=== PATIENT | female | born 1960 | race Caucasian/White ===

== ENCOUNTER 2016-09-19 13:14 | Outpatient (CLI) | payer MEDICARE ==
[2016-09-19 14:01] LABS: Bilirubin Negative (Negative); Blood, Urine Negative (Negative); Glucose, Urine (Dipstick) Negative (Negative); Ketone, Urine Negative (Negative); Nitrite Negative (Negative); Protein, Urine (Dipstick) Negative (Neg-Trace); Urobilinogen 0.2 mg/dL (0.2-1.0)
[2016-09-19 14:11] LABS: Bacteria/HPF Rare-Few HPF (None Seen); RBC/HPF None Seen HPF (0-3); Squamous Epithelial 0-3 HPF (0-3); WBC/HPF 0-3 HPF (0-3)
[2016-09-19 14:19] LABS: ALT (SGPT) 51 U/L (0-55); AST (SGOT) 34 U/L (5-34); Alkaline Phosphatase 85 U/L (40-150); Anion Gap 18 mmol/L (10-20); BUN (Urea Nitrogen) 30 mg/dL (9.8-20.1); Bilirubin, Total 0.3 mg/dL (0.2-1.2); Calc. Creatinine Clearance 0 mL/min (70-130); Carbon Dioxide 21 mmol/L (22-29); Chloride 101 mmol/L (98-107); Estimated GFR-MDRD 81; Globulin 3.7 g/dL (2.4-3.5); Magnesium 1.7 mg/dL (1.6-2.6); Phosphorus 3.7 mg/dL (2.3-4.7); Protein, Total 6.9 g/dL (6.0-8.3)
[2016-09-19 15:24] LABS: Hemoglobin A1c 5.1 % (4.0-6.0)
[2016-09-19 16:23] LABS: #Lymphocytes 1.3 thou/uL (1.20-3.40); #Monocytes 0.5 thou/uL (0.11-0.59); #Neutrophils 4.7 thou/uL (1.40-6.50); %Basophils 0.4 % (0.0-1.0); %Eosinophils 0.1 % (0.0-10.0); %Lymphocytes 19.5 % (21.0-51.0); %Monocytes 7.7 % (0.0-10.0); Acanthocytes SLIGHT = 1-5 cells (100X) (None Seen); Anisocytosis MODERATE=16-30 cells (100X) (0-5/hpf); Hematocrit 25.8 % (36.0-47.0); Hypochromia MARKED = >30 cells (100X) (0-5/hpf); Mean Platelet Volume 9.4 fL (7.4-10.4); Microcytosis MODERATE=15-30 cells (100X) (0-5/hpf); Red Blood Cell (RBC) Count 3.62 mill/uL (4.20-5.40); White Blood Cell (WBC) Count 6.5 thou/uL (4.8-10.8)
== END 2016-09-19 13:15 | disposition home or self-care (01) ==
LOC: NAV LABSP 13:14
PROVIDERS: ATTEND Family Medicine
DX: I10 Essential (primary) hypertension (principal); M34.9 Systemic sclerosis, unspecified; K22.70 Barrett's esophagus without dysplasia; N39.0 Urinary tract infection, site not specified; E44.0 Moderate protein-calorie malnutrition; J44.1 Chronic obstructive pulmonary disease with (acute) exacerbation; E11.9 Type 2 diabetes mellitus without complications
CPT/HCPCS: 80053; 81001; 83036; 83735; 84100; 84134; 84478; 85025

== ENCOUNTER 2016-09-26 14:33 | Outpatient (CLI) | payer MEDICARE ==
[2016-09-26 15:47] LABS: ALT (SGPT) 33 U/L (0-55); AST (SGOT) 35 U/L (5-34); Alkaline Phosphatase 82 U/L (40-150); Anion Gap 15 mmol/L (10-20); BUN (Urea Nitrogen) 22 mg/dL (9.8-20.1); Bilirubin, Total 0.2 mg/dL (0.2-1.2); Calc. Creatinine Clearance 0 mL/min (70-130); Calcium 8.3 mg/dL (7.8-10.44); Carbon Dioxide 23 mmol/L (22-29); Chloride 103 mmol/L (98-107); Estimated GFR-MDRD 78; Globulin 3.6 g/dL (2.4-3.5); Magnesium 1.7 mg/dL (1.6-2.6); Protein, Total 6.4 g/dL (6.0-8.3)
[2016-09-26 17:25] LABS: #Basophils 0.1 thou/uL (0.0-0.2); #Monocytes 0.8 thou/uL (0.11-0.59); %Basophils 2.4 % (0.0-1.0); %Eosinophils 0.1 % (0.0-10.0); %Lymphocytes 20.6 % (21.0-51.0); %Monocytes 16.9 % (0.0-10.0); Hematocrit 23.1 % (36.0-47.0); Mean Platelet Volume 7.9 fL (7.4-10.4); Red Blood Cell (RBC) Count 3.25 mill/uL (4.20-5.40); White Blood Cell (WBC) Count 4.9 thou/uL (4.8-10.8)
== END 2016-09-26 14:34 | disposition home or self-care (01) ==
LOC: NAV LABSP 14:33
PROVIDERS: ATTEND Family Medicine
DX: E44.0 Moderate protein-calorie malnutrition (principal); M34.9 Systemic sclerosis, unspecified; K22.70 Barrett's esophagus without dysplasia; J44.1 Chronic obstructive pulmonary disease with (acute) exacerbation; I10 Essential (primary) hypertension
CPT/HCPCS: 80053; 83735; 84100; 84134; 84478; 85025

== ENCOUNTER 2016-10-02 15:02 | Outpatient (CLI) | payer MEDICARE ==
[2016-10-02 17:52] LABS: ALT (SGPT) 58 U/L (0-55); AST (SGOT) 71 U/L (5-34); Alkaline Phosphatase 101 U/L (40-150); Anion Gap 19 mmol/L (10-20); BUN (Urea Nitrogen) 32 mg/dL (9.8-20.1); Bilirubin, Total 0.2 mg/dL (0.2-1.2); Calc. Creatinine Clearance 0 mL/min (70-130); Calcium 9.1 mg/dL (7.8-10.44); Carbon Dioxide 20 mmol/L (22-29); Chloride 103 mmol/L (98-107); Estimated GFR-MDRD 69; Globulin 4.2 g/dL (2.4-3.5); Magnesium 1.8 mg/dL (1.6-2.6); Phosphorus 3.7 mg/dL (2.3-4.7); Protein, Total 7.5 g/dL (6.0-8.3)
[2016-10-02 18:25] LABS: #Basophils 0.1 thou/uL (0.0-0.2); #Lymphocytes 1.7 thou/uL (1.20-3.40); #Monocytes 0.8 thou/uL (0.11-0.59); #Neutrophils 6.7 thou/uL (1.40-6.50); %Basophils 0.5 % (0.0-1.0); %Lymphocytes 18.1 % (21.0-51.0); %Monocytes 8.5 % (0.0-10.0); Anisocytosis SLIGHT = 6-15 cells (100X) (0-5/hpf); Hematocrit 36.1 % (36.0-47.0); Hypochromia SLIGHT = 6-15 cells (100X) (0-5/hpf); Mean Platelet Volume 7.4 fL (7.4-10.4); Microcytosis SLIGHT = 6-15 cells (100X) (0-5/hpf); Ovalocytes SLIGHT = 2-5 cells (100X) (0-1/hpf); Poikilocytosis SLIGHT = 6-15 cells (100X) (0-5/hpf); Polychromasia SLIGHT = 2-3 cells (100X) (0-2/hpf); Red Blood Cell (RBC) Count 4.75 mill/uL (4.20-5.40); White Blood Cell (WBC) Count 9.2 thou/uL (4.8-10.8)
== END 2016-10-02 15:03 | disposition home or self-care (01) ==
LOC: NAV LABSP 15:02
PROVIDERS: ATTEND Family Medicine
DX: J44.1 Chronic obstructive pulmonary disease with (acute) exacerbation (principal); K22.70 Barrett's esophagus without dysplasia; M34.9 Systemic sclerosis, unspecified; I10 Essential (primary) hypertension; E44.0 Moderate protein-calorie malnutrition
CPT/HCPCS: 80053; 83735; 84100; 84134; 84478; 85025

== ENCOUNTER 2016-10-16 13:50 | Outpatient (CLI) | payer MEDICARE ==
[2016-10-16 14:24] LABS: ALT (SGPT) 39 U/L (0-55); AST (SGOT) 53 U/L (5-34); Alkaline Phosphatase 100 U/L (40-150); Anion Gap 16 mmol/L (10-20); BUN (Urea Nitrogen) 32 mg/dL (9.8-20.1); Bilirubin, Total 0.7 mg/dL (0.2-1.2); Calc. Creatinine Clearance 0 mL/min (70-130); Calcium 8.8 mg/dL (7.8-10.44); Carbon Dioxide 22 mmol/L (22-29); Chloride 102 mmol/L (98-107); Estimated GFR-MDRD 81; Globulin 4.1 g/dL (2.4-3.5); Magnesium 1.8 mg/dL (1.6-2.6); Protein, Total 7.2 g/dL (6.0-8.3)
[2016-10-16 14:34] LABS: #Lymphocytes 1.6 thou/uL (1.20-3.40); #Monocytes 0.7 thou/uL (0.11-0.59); #Neutrophils 6.6 thou/uL (1.40-6.50); %Basophils 0.5 % (0.0-1.0); %Eosinophils 0.1 % (0.0-10.0); %Lymphocytes 17.7 % (21.0-51.0); Hematocrit 30.3 % (36.0-47.0); Hypochromia SLIGHT = 6-15 cells (100X) (0-5/hpf); Mean Platelet Volume 8.9 fL (7.4-10.4); Microcytosis SLIGHT = 6-15 cells (100X) (0-5/hpf); Ovalocytes SLIGHT = 2-5 cells (100X) (0-1/hpf); Poikilocytosis SLIGHT = 6-15 cells (100X) (0-5/hpf); Polychromasia SLIGHT = 2-3 cells (100X) (0-2/hpf); Red Blood Cell (RBC) Count 3.97 mill/uL (4.20-5.40); Tear Drops SLIGHT = 2-5 cells (100X) (0-1/hpf); White Blood Cell (WBC) Count 8.9 thou/uL (4.8-10.8)
[2016-10-16 14:50] LABS: Phosphorus 1.7 mg/dL (2.3-4.7)
== END 2016-10-16 13:51 | disposition home or self-care (01) ==
LOC: NAV LABSP 13:50
PROVIDERS: ATTEND Family Medicine
DX: E44.0 Moderate protein-calorie malnutrition (principal); J44.0 Chronic obstructive pulmonary disease with (acute) lower respiratory infection; J44.1 Chronic obstructive pulmonary disease with (acute) exacerbation; I10 Essential (primary) hypertension; M34.9 Systemic sclerosis, unspecified
CPT/HCPCS: 80053; 83735; 84100; 84134; 84478; 85025

== ENCOUNTER 2016-10-23 13:05 | Outpatient (CLI) | payer MEDICARE ==
[2016-10-23 18:19] LABS: #Lymphocytes 1.3 thou/uL (1.20-3.40); #Monocytes 0.7 thou/uL (0.11-0.59); #Neutrophils 6.5 thou/uL (1.40-6.50); %Basophils 0.3 % (0.0-1.0); %Lymphocytes 15.2 % (21.0-51.0); %Monocytes 8.1 % (0.0-10.0); ALT (SGPT) 30 U/L (0-55); AST (SGOT) 41 U/L (5-34); Alkaline Phosphatase 95 U/L (40-150); Anion Gap 19 mmol/L (10-20); BUN (Urea Nitrogen) 33 mg/dL (9.8-20.1); Bilirubin, Total 0.4 mg/dL (0.2-1.2); Calc. Creatinine Clearance 0 mL/min (70-130); Calcium 8.9 mg/dL (7.8-10.44); Carbon Dioxide 20 mmol/L (22-29); Chloride 100 mmol/L (98-107); Estimated GFR-MDRD 77; Globulin 4.1 g/dL (2.4-3.5); Hematocrit 29.6 % (36.0-47.0); Magnesium 2.1 mg/dL (1.6-2.6); Mean Platelet Volume 7.4 fL (7.4-10.4); Protein, Total 7.2 g/dL (6.0-8.3); Red Blood Cell (RBC) Count 3.63 mill/uL (4.20-5.40); White Blood Cell (WBC) Count 8.5 thou/uL (4.8-10.8)
== END 2016-10-23 13:06 | disposition home or self-care (01) ==
LOC: NAV LABSP 13:05
PROVIDERS: ATTEND Family Medicine
DX: J44.1 Chronic obstructive pulmonary disease with (acute) exacerbation (principal); I10 Essential (primary) hypertension; E44.0 Moderate protein-calorie malnutrition; M34.9 Systemic sclerosis, unspecified; K22.70 Barrett's esophagus without dysplasia
CPT/HCPCS: 80053; 83735; 84100; 84134; 84478; 85025

== ENCOUNTER 2016-10-30 12:33 | Outpatient (CLI) | payer MEDICARE ==
[2016-10-30 16:57] LABS: ALT (SGPT) 30 U/L (0-55); AST (SGOT) 36 U/L (5-34); Alkaline Phosphatase 93 U/L (40-150); Anion Gap 16 mmol/L (10-20); BUN (Urea Nitrogen) 28 mg/dL (9.8-20.1); Bilirubin, Total 0.3 mg/dL (0.2-1.2); Calc. Creatinine Clearance 0 mL/min (70-130); Carbon Dioxide 24 mmol/L (22-29); Chloride 99 mmol/L (98-107); Estimated GFR-MDRD 84; Globulin 3.9 g/dL (2.4-3.5); Magnesium 2.1 mg/dL (1.6-2.6); Phosphorus 4.2 mg/dL (2.3-4.7); Protein, Total 6.8 g/dL (6.0-8.3)
[2016-10-30 17:13] LABS: #Lymphocytes 1.1 thou/uL (1.20-3.40); #Monocytes 0.6 thou/uL (0.11-0.59); %Basophils 0.4 % (0.0-1.0); %Lymphocytes 19.6 % (21.0-51.0); %Monocytes 10.5 % (0.0-10.0); Anisocytosis SLIGHT = 6-15 cells (100X) (0-5/hpf); Hematocrit 27.6 % (36.0-47.0); Hypochromia SLIGHT = 6-15 cells (100X) (0-5/hpf); Microcytosis SLIGHT = 6-15 cells (100X) (0-5/hpf); Red Blood Cell (RBC) Count 3.31 mill/uL (4.20-5.40); White Blood Cell (WBC) Count 5.7 thou/uL (4.8-10.8)
== END 2016-10-30 12:34 | disposition home or self-care (01) ==
LOC: NAV LABSP 12:33
PROVIDERS: ATTEND Family Medicine
DX: E44.0 Moderate protein-calorie malnutrition (principal); J44.1 Chronic obstructive pulmonary disease with (acute) exacerbation; K22.70 Barrett's esophagus without dysplasia; I10 Essential (primary) hypertension; M34.9 Systemic sclerosis, unspecified
CPT/HCPCS: 80053; 83735; 84100; 84134; 84478; 85025

== ENCOUNTER 2016-11-06 15:29 | Outpatient (CLI) | payer MEDICARE ==
[2016-11-06 16:54] LABS: ALT (SGPT) 31 U/L (0-55); AST (SGOT) 36 U/L (5-34); Alkaline Phosphatase 98 U/L (40-150); Anion Gap 19 mmol/L (10-20); BUN (Urea Nitrogen) 28 mg/dL (9.8-20.1); Bilirubin, Total 0.3 mg/dL (0.2-1.2); Calc. Creatinine Clearance 0 mL/min (70-130); Calcium 9.1 mg/dL (7.8-10.44); Carbon Dioxide 21 mmol/L (22-29); Chloride 99 mmol/L (98-107); Estimated GFR-MDRD 74; Globulin 4.6 g/dL (2.4-3.5); Phosphorus 4.5 mg/dL (2.3-4.7); Protein, Total 7.8 g/dL (6.0-8.3)
[2016-11-06 17:15] LABS: #Lymphocytes 1.3 thou/uL (1.20-3.40); #Monocytes 0.4 thou/uL (0.11-0.59); #Neutrophils 4.3 thou/uL (1.40-6.50); %Basophils 0.4 % (0.0-1.0); %Lymphocytes 21.5 % (21.0-51.0); Anisocytosis MODERATE=16-30 cells (100X) (0-5/hpf); Hematocrit 30.9 % (36.0-47.0); Hypochromia SLIGHT = 6-15 cells (100X) (0-5/hpf); Red Blood Cell (RBC) Count 3.67 mill/uL (4.20-5.40); Schistocytes SLIGHT = 2-5 cells (100X) (0-1/hpf)
== END 2016-11-06 15:30 | disposition home or self-care (01) ==
LOC: NAV LABSP 15:29
PROVIDERS: ATTEND Family Medicine
DX: E44.0 Moderate protein-calorie malnutrition (principal); J44.1 Chronic obstructive pulmonary disease with (acute) exacerbation; I10 Essential (primary) hypertension; M34.9 Systemic sclerosis, unspecified; K22.70 Barrett's esophagus without dysplasia
CPT/HCPCS: 80053; 83735; 84100; 84134; 84478; 85025

== ENCOUNTER 2016-11-13 15:06 | Outpatient (CLI) | payer MEDICARE ==
[2016-11-13 16:54] LABS: #Monocytes 0.5 thou/uL (0.11-0.59); #Neutrophils 6.6 thou/uL (1.40-6.50); %Basophils 0.4 % (0.0-1.0); %Lymphocytes 12.3 % (21.0-51.0); %Monocytes 6.5 % (0.0-10.0); Hematocrit 26.1 % (36.0-47.0); Hypochromia SLIGHT = 6-15 cells (100X) (0-5/hpf); Mean Platelet Volume 8.4 fL (7.4-10.4); Microcytosis SLIGHT = 6-15 cells (100X) (0-5/hpf); Red Blood Cell (RBC) Count 3.21 mill/uL (4.20-5.40); Schistocytes SLIGHT = 2-5 cells (100X) (0-1/hpf); White Blood Cell (WBC) Count 8.2 thou/uL (4.8-10.8)
[2016-11-13 17:26] LABS: Anion Gap 18 mmol/L (10-20); Bilirubin, Total 0.2 mg/dL (0.2-1.2); Calc. Creatinine Clearance 0 mL/min (70-130); Calcium 8.4 mg/dL (7.8-10.44); Carbon Dioxide 21 mmol/L (22-29); Chloride 101 mmol/L (98-107); Estimated GFR-MDRD 78; Phosphorus 4.3 mg/dL (2.3-4.7)
[2016-11-13 17:44] LABS: BUN (Urea Nitrogen) 29 mg/dL (9.8-20.1)
[2016-11-13 17:46] LABS: Alkaline Phosphatase 85 U/L (40-150)
[2016-11-13 17:47] LABS: ALT (SGPT) 34 U/L (0-55); AST (SGOT) 33 U/L (5-34)
== END 2016-11-13 15:07 | disposition home or self-care (01) ==
LOC: NAV LAB 15:06
PROVIDERS: ATTEND Family Medicine
DX: J44.1 Chronic obstructive pulmonary disease with (acute) exacerbation (principal); K22.70 Barrett's esophagus without dysplasia; E44.0 Moderate protein-calorie malnutrition; I10 Essential (primary) hypertension; M34.9 Systemic sclerosis, unspecified
CPT/HCPCS: 80053; 83735; 84100; 84134; 84478; 85025

== ENCOUNTER 2016-11-20 15:34 | Outpatient (CLI) | payer MEDICARE ==
[2016-11-20 16:55] LABS: #Lymphocytes 1.9 thou/uL (1.20-3.40); #Monocytes 0.4 thou/uL (0.11-0.59); #Neutrophils 4.2 thou/uL (1.40-6.50); %Basophils 0.5 % (0.0-1.0); %Monocytes 6.2 % (0.0-10.0); Hematocrit 28.1 % (36.0-47.0); Mean Platelet Volume 7.9 fL (7.4-10.4); Red Blood Cell (RBC) Count 3.44 mill/uL (4.20-5.40); White Blood Cell (WBC) Count 6.5 thou/uL (4.8-10.8)
[2016-11-20 17:19] LABS: ALT (SGPT) 39 U/L (0-55); AST (SGOT) 43 U/L (5-34); Alkaline Phosphatase 90 U/L (40-150); Anion Gap 16 mmol/L (10-20); BUN (Urea Nitrogen) 29 mg/dL (9.8-20.1); Bilirubin, Total 0.2 mg/dL (0.2-1.2); Calc. Creatinine Clearance 0 mL/min (70-130); Calcium 8.7 mg/dL (7.8-10.44); Carbon Dioxide 21 mmol/L (22-29); Chloride 90 mmol/L (98-107); Estimated GFR-MDRD 81; Globulin 4.4 g/dL (2.4-3.5); Magnesium 1.8 mg/dL (1.6-2.6); Phosphorus 4.8 mg/dL (2.3-4.7); Protein, Total 7.5 g/dL (6.0-8.3)
== END 2016-11-20 15:35 | disposition home or self-care (01) ==
LOC: NAV LABSP 15:34
PROVIDERS: ATTEND Family Medicine
DX: M34.9 Systemic sclerosis, unspecified (principal); K22.70 Barrett's esophagus without dysplasia; E44.0 Moderate protein-calorie malnutrition; J44.1 Chronic obstructive pulmonary disease with (acute) exacerbation; I10 Essential (primary) hypertension
CPT/HCPCS: 80053; 83735; 84100; 84134; 84478; 85025

== ENCOUNTER 2016-11-27 14:09 | Outpatient (CLI) | payer MEDICARE ==
[2016-11-27 14:47] LABS: ALT (SGPT) 45 U/L (0-55); AST (SGOT) 46 U/L (5-34); Alkaline Phosphatase 87 U/L (40-150); Anion Gap 19 mmol/L (10-20); BUN (Urea Nitrogen) 32 mg/dL (9.8-20.1); Bilirubin, Total 0.2 mg/dL (0.2-1.2); Calc. Creatinine Clearance 0 mL/min (70-130); Calcium 8.8 mg/dL (7.8-10.44); Carbon Dioxide 23 mmol/L (22-29); Chloride 97 mmol/L (98-107); Estimated GFR-MDRD 79; Globulin 4.5 g/dL (2.4-3.5); Magnesium 1.7 mg/dL (1.6-2.6); Phosphorus 4.6 mg/dL (2.3-4.7); Protein, Total 7.5 g/dL (6.0-8.3)
[2016-11-27 14:59] LABS: #Lymphocytes 1.3 thou/uL (1.20-3.40); #Monocytes 0.5 thou/uL (0.11-0.59); #Neutrophils 4.8 thou/uL (1.40-6.50); %Basophils 0.4 % (0.0-1.0); %Lymphocytes 20.3 % (21.0-51.0); %Monocytes 6.9 % (0.0-10.0); Hematocrit 25.4 % (36.0-47.0); Hypochromia SLIGHT = 6-15 cells (100X) (0-5/hpf); Mean Platelet Volume 8.2 fL (7.4-10.4); Microcytosis SLIGHT = 6-15 cells (100X) (0-5/hpf); Red Blood Cell (RBC) Count 3.21 mill/uL (4.20-5.40); White Blood Cell (WBC) Count 6.6 thou/uL (4.8-10.8)
== END 2016-11-27 14:10 | disposition home or self-care (01) ==
LOC: NAV LABSP 14:09
PROVIDERS: ATTEND Family Medicine
DX: E44.0 Moderate protein-calorie malnutrition (principal); M34.9 Systemic sclerosis, unspecified; K22.70 Barrett's esophagus without dysplasia; J44.1 Chronic obstructive pulmonary disease with (acute) exacerbation; I10 Essential (primary) hypertension
CPT/HCPCS: 80053; 83735; 84100; 84134; 84478; 85025

== ENCOUNTER 2016-12-04 16:06 | Outpatient (CLI) | payer MEDICARE ==
[2016-12-04 19:43] LABS: ALT (SGPT) 41 U/L (0-55); Alkaline Phosphatase 80 U/L (40-150); BUN (Urea Nitrogen) 34 mg/dL (9.8-20.1); Calc. Creatinine Clearance 0 mL/min (70-130); Carbon Dioxide 21 mmol/L (22-29); Estimated GFR-MDRD 83; Globulin 4.3 g/dL (2.4-3.5); Glucose 110 mg/dL (70-105); Protein, Total 7.3 g/dL (6.0-8.3)
[2016-12-04 19:47] LABS: #Monocytes 0.4 thou/uL (0.11-0.59); %Basophils 0.5 % (0.0-1.0); %Eosinophils 0.1 % (0.0-10.0); %Lymphocytes 23.2 % (21.0-51.0); %Monocytes 8.1 % (0.0-10.0); %Neutrophils 68.1 % (42.0-75.0); Hemoglobin 7.7 g/dL (12.0-16.0); Mean Corpuscular HGB CONC 30.6 g/dL (32.0-36.0); Mean Corpuscular Hemoglobin 24.3 pg (27.0-31.0); Mean Corpuscular Volume 79.3 fl (81.0-99.0); Mean Platelet Volume 7.9 fL (7.4-10.4); Platelet Count 144 thou/uL (130-400); RBC Distribution Width 18.6 % (11.5-14.5); Red Blood Cell (RBC) Count 3.17 mill/uL (4.20-5.40); White Blood Cell (WBC) Count 4.4 thou/uL (4.8-10.8)
[2016-12-04 19:55] LABS: AST (SGOT) 38 U/L (5-34); Bilirubin, Total 0.2 mg/dL (0.2-1.2); Calcium 8.7 mg/dL (7.8-10.44); Magnesium 1.8 mg/dL (1.6-2.6); Phosphorus 4.1 mg/dL (2.3-4.7); Triglycerides 245 mg/dL (Less than 150)
[2016-12-04 20:03] LABS: Chloride 101 mmol/L (98-107); Sodium 138 mmol/L (136-145)
[2016-12-04 20:04] LABS: Anion Gap 20 mmol/L (10-20)
== END 2016-12-04 16:07 | disposition home or self-care (01) ==
LOC: NAV LABSP 16:06
PROVIDERS: ATTEND Family Medicine
DX: E44.0 Moderate protein-calorie malnutrition (principal); M34.9 Systemic sclerosis, unspecified; K27.0 Acute peptic ulcer, site unspecified, with hemorrhage; I10 Essential (primary) hypertension; J44.1 Chronic obstructive pulmonary disease with (acute) exacerbation
CPT/HCPCS: 80053; 83735; 84100; 84134; 84478; 85025

== ENCOUNTER 2016-12-11 16:05 | Outpatient (CLI) | payer MEDICARE ==
[2016-12-11 17:01] LABS: ALT (SGPT) 59 U/L (0-55); AST (SGOT) 38 U/L (5-34); Albumin 2.9 g/dL (3.5-5.0); Alkaline Phosphatase 104 U/L (40-150); Anion Gap 16 mmol/L (10-20); BUN (Urea Nitrogen) 27 mg/dL (9.8-20.1); Bilirubin, Total 0.3 mg/dL (0.2-1.2); Calc. Creatinine Clearance 0 mL/min (70-130); Calcium 8.3 mg/dL (7.8-10.44); Carbon Dioxide 22 mmol/L (22-29); Chloride 100 mmol/L (98-107); Estimated GFR-MDRD 78; Globulin 4.4 g/dL (2.4-3.5); Glucose 106 mg/dL (70-105); Magnesium 1.8 mg/dL (1.6-2.6); Phosphorus 4.4 mg/dL (2.3-4.7); Potassium 4.3 mmol/L (3.5-5.1); Protein, Total 7.3 g/dL (6.0-8.3); Sodium 134 mmol/L (136-145); Triglycerides 261 mg/dL (Less than 150)
[2016-12-11 17:23] LABS: #Lymphocytes 1.1 thou/uL (1.20-3.40); #Monocytes 0.3 thou/uL (0.11-0.59); #Neutrophils 3.2 thou/uL (1.40-6.50); %Basophils 0.8 % (0.0-1.0); %Monocytes 7.2 % (0.0-10.0); %Neutrophils 68.1 % (42.0-75.0); Hemoglobin 7.6 g/dL (12.0-16.0); Hypochromia SLIGHT = 6-15 cells (100X) (0-5/hpf); MDiff Complete? YES; Mean Corpuscular HGB CONC 31.7 g/dL (32.0-36.0); Mean Corpuscular Hemoglobin 25.1 pg (27.0-31.0); Mean Corpuscular Volume 79.1 fl (81.0-99.0); Mean Platelet Volume 10.1 fL (7.4-10.4); Microcytosis SLIGHT = 6-15 cells (100X) (0-5/hpf); PLT Morphology Comment Appears Decreased; Platelet Count 115 thou/uL (130-400); RBC Distribution Width 17.5 % (11.5-14.5); Red Blood Cell (RBC) Count 3.01 mill/uL (4.20-5.40); White Blood Cell (WBC) Count 4.7 thou/uL (4.8-10.8)
== END 2016-12-11 16:06 | disposition home or self-care (01) ==
LOC: NAV LABSP 16:05
PROVIDERS: ATTEND Family Medicine
DX: E44.0 Moderate protein-calorie malnutrition (principal); M34.9 Systemic sclerosis, unspecified; K22.70 Barrett's esophagus without dysplasia; J44.1 Chronic obstructive pulmonary disease with (acute) exacerbation; I10 Essential (primary) hypertension
CPT/HCPCS: 80053; 83735; 84100; 84134; 84478; 85025

== ENCOUNTER 2016-12-18 16:01 | Outpatient (CLI) | payer MEDICARE ==
[2016-12-18 17:50] LABS: ALT (SGPT) 50 U/L (0-55); AST (SGOT) 52 U/L (5-34); Albumin 2.8 g/dL (3.5-5.0); Alkaline Phosphatase 98 U/L (40-150); Anion Gap 19 mmol/L (10-20); BUN (Urea Nitrogen) 28 mg/dL (9.8-20.1); Bilirubin, Total 0.3 mg/dL (0.2-1.2); Calc. Creatinine Clearance 0 mL/min (70-130); Calcium 8.7 mg/dL (7.8-10.44); Carbon Dioxide 21 mmol/L (22-29); Chloride 99 mmol/L (98-107); Estimated GFR-MDRD 81; Glucose 106 mg/dL (70-105); Magnesium 1.7 mg/dL (1.6-2.6); Phosphorus 4.6 mg/dL (2.3-4.7); Potassium 4.4 mmol/L (3.5-5.1); Protein, Total 7.8 g/dL (6.0-8.3); Sodium 135 mmol/L (136-145); Triglycerides 249 mg/dL (Less than 150)
[2016-12-18 18:17] LABS: #Monocytes 0.4 thou/uL (0.11-0.59); #Neutrophils 3.2 thou/uL (1.40-6.50); %Basophils 0.6 % (0.0-1.0); %Lymphocytes 22.1 % (21.0-51.0); %Monocytes 8.2 % (0.0-10.0); %Neutrophils 69.1 % (42.0-75.0); Band 5 % (5-11); Hemoglobin 7.1 g/dL (12.0-16.0); Lymphocytes 18 % (21-51); MDiff Complete? YES; Mean Corpuscular HGB CONC 30.5 g/dL (32.0-36.0); Mean Corpuscular Hemoglobin 24.1 pg (27.0-31.0); Mean Corpuscular Volume 78.9 fl (81.0-99.0); Microcytosis MODERATE=15-30 cells (100X) (0-5/hpf); Monocytes 4 % (0-10); Neutrophil 73 % (42-75); Ovalocytes SLIGHT = 2-5 cells (100X) (0-1/hpf); PLT Morphology Comment Appears Adequate; Platelet Count 136 thou/uL (130-400); RBC Distribution Width 17.7 % (11.5-14.5); Red Blood Cell (RBC) Count 2.96 mill/uL (4.20-5.40); White Blood Cell (WBC) Count 4.7 thou/uL (4.8-10.8)
== END 2016-12-18 16:02 | disposition home or self-care (01) ==
LOC: NAV LABSP 16:01
PROVIDERS: ATTEND Family Medicine
DX: J44.1 Chronic obstructive pulmonary disease with (acute) exacerbation (principal); I10 Essential (primary) hypertension; M34.9 Systemic sclerosis, unspecified; K22.70 Barrett's esophagus without dysplasia; E44.0 Moderate protein-calorie malnutrition
CPT/HCPCS: 80053; 83735; 84100; 84134; 84478; 85025

== ENCOUNTER 2016-12-26 15:14 | Outpatient (CLI) | payer MEDICARE ==
[2016-12-26 16:48] LABS: ALT (SGPT) 64 U/L (0-55); AST (SGOT) 56 U/L (5-34); Albumin 2.9 g/dL (3.5-5.0); Alkaline Phosphatase 119 U/L (40-150); Anion Gap 17 mmol/L (10-20); BUN (Urea Nitrogen) 28 mg/dL (9.8-20.1); Bilirubin, Total 0.4 mg/dL (0.2-1.2); Calc. Creatinine Clearance 0 mL/min (70-130); Calcium 8.8 mg/dL (7.8-10.44); Carbon Dioxide 23 mmol/L (22-29); Chloride 97 mmol/L (98-107); Estimated GFR-MDRD 86; Globulin 4.4 g/dL (2.4-3.5); Glucose 104 mg/dL (70-105); Magnesium 1.6 mg/dL (1.6-2.6); Phosphorus 4.4 mg/dL (2.3-4.7); Potassium 4.2 mmol/L (3.5-5.1); Protein, Total 7.3 g/dL (6.0-8.3); Sodium 133 mmol/L (136-145); Triglycerides 190 mg/dL (Less than 150)
[2016-12-26 17:17] LABS: #Lymphocytes 1.1 thou/uL (1.20-3.40); #Monocytes 0.3 thou/uL (0.11-0.59); #Neutrophils 3.9 thou/uL (1.40-6.50); %Basophils 0.8 % (0.0-1.0); %Lymphocytes 21.2 % (21.0-51.0); %Monocytes 5.5 % (0.0-10.0); %Neutrophils 72.5 % (42.0-75.0); Anisocytosis SLIGHT = 6-15 cells (100X) (0-5/hpf); Hemoglobin 9.6 g/dL (12.0-16.0); Hypochromia SLIGHT = 6-15 cells (100X) (0-5/hpf); MDiff Complete? YES; Mean Corpuscular HGB CONC 32.6 g/dL (32.0-36.0); Mean Corpuscular Volume 79.9 fl (81.0-99.0); Mean Platelet Volume 8.1 fL (7.4-10.4); Microcytosis SLIGHT = 6-15 cells (100X) (0-5/hpf); Ovalocytes SLIGHT = 2-5 cells (100X) (0-1/hpf); PLT Morphology Comment Appears Decreased; Platelet Count 125 thou/uL (130-400); RBC Distribution Width 18.5 % (11.5-14.5); White Blood Cell (WBC) Count 5.4 thou/uL (4.8-10.8)
== END 2016-12-26 15:15 | disposition home or self-care (01) ==
LOC: NAV LABSP 15:14
PROVIDERS: ATTEND Family Medicine
DX: E44.0 Moderate protein-calorie malnutrition (principal); J44.1 Chronic obstructive pulmonary disease with (acute) exacerbation; M34.9 Systemic sclerosis, unspecified; I10 Essential (primary) hypertension; K22.70 Barrett's esophagus without dysplasia
CPT/HCPCS: 80053; 83735; 84100; 84134; 84478; 85025

== ENCOUNTER 2017-01-02 13:18 | Outpatient (CLI) | payer MEDICARE ==
[2017-01-02 14:39] LABS: #Basophils 0.1 thou/uL (0.0-0.2); #Lymphocytes 0.9 thou/uL (1.20-3.40); #Monocytes 0.5 thou/uL (0.11-0.59); #Neutrophils 3.4 thou/uL (1.40-6.50); %Basophils 1.1 % (0.0-1.0); %Eosinophils 0.1 % (0.0-10.0); %Lymphocytes 18.9 % (21.0-51.0); %Monocytes 9.2 % (0.0-10.0); %Neutrophils 70.7 % (42.0-75.0); Anisocytosis MODERATE=16-30 cells (100X) (0-5/hpf); Hemoglobin 8.6 g/dL (12.0-16.0); Hypochromia MODERATE=16-30 cells (100X) (0-5/hpf); MDiff Complete? YES; Mean Corpuscular HGB CONC 32.8 g/dL (32.0-36.0); Mean Corpuscular Hemoglobin 26.2 pg (27.0-31.0); Mean Corpuscular Volume 79.9 fl (81.0-99.0); Microcytosis SLIGHT = 6-15 cells (100X) (0-5/hpf); Platelet Count 133 thou/uL (130-400); RBC Distribution Width 19.2 % (11.5-14.5); Target Cells SLIGHT = 2-5 cells (100X) (0-1/hpf); White Blood Cell (WBC) Count 4.8 thou/uL (4.8-10.8)
[2017-01-02 14:49] LABS: ALT (SGPT) 85 U/L (0-55); AST (SGOT) 67 U/L (5-34); Albumin 2.7 g/dL (3.5-5.0); Alkaline Phosphatase 112 U/L (40-150); Anion Gap 17 mmol/L (10-20); BUN (Urea Nitrogen) 29 mg/dL (9.8-20.1); Bilirubin, Total 0.3 mg/dL (0.2-1.2); Calc. Creatinine Clearance 0 mL/min (70-130); Calcium 8.5 mg/dL (7.8-10.44); Carbon Dioxide 24 mmol/L (22-29); Chloride 98 mmol/L (98-107); Estimated GFR-MDRD 90; Globulin 4.2 g/dL (2.4-3.5); Glucose 92 mg/dL (70-105); Magnesium 2.4 mg/dL (1.6-2.6); Phosphorus 4.1 mg/dL (2.3-4.7); Potassium 4.4 mmol/L (3.5-5.1); Protein, Total 6.9 g/dL (6.0-8.3); Sodium 135 mmol/L (136-145); Triglycerides 216 mg/dL (Less than 150)
== END 2017-01-02 13:19 | disposition home or self-care (01) ==
LOC: NAV LABSP 13:18
PROVIDERS: ATTEND Family Medicine
DX: K22.70 Barrett's esophagus without dysplasia (principal); E44.0 Moderate protein-calorie malnutrition; J44.1 Chronic obstructive pulmonary disease with (acute) exacerbation; M34.9 Systemic sclerosis, unspecified; I10 Essential (primary) hypertension
CPT/HCPCS: 80053; 83735; 84100; 84134; 84478; 85025

== ENCOUNTER 2017-01-08 13:15 | Outpatient (CLI) | payer MEDICARE ==
[2017-01-08 13:53] LABS: #Lymphocytes 0.9 thou/uL (1.20-3.40); #Monocytes 0.5 thou/uL (0.11-0.59); #Neutrophils 4.7 thou/uL (1.40-6.50); %Basophils 0.5 % (0.0-1.0); %Lymphocytes 14.9 % (21.0-51.0); %Monocytes 7.8 % (0.0-10.0); %Neutrophils 76.7 % (42.0-75.0); Hemoglobin 8.2 g/dL (12.0-16.0); Mean Corpuscular HGB CONC 31.2 g/dL (32.0-36.0); Mean Corpuscular Hemoglobin 24.6 pg (27.0-31.0); Mean Platelet Volume 8.4 fL (7.4-10.4); Platelet Count 137 thou/uL (130-400); RBC Distribution Width 20.3 % (11.5-14.5); Red Blood Cell (RBC) Count 3.35 mill/uL (4.20-5.40); White Blood Cell (WBC) Count 6.1 thou/uL (4.8-10.8)
[2017-01-08 14:05] LABS: Chloride 99 mmol/L (98-107); Sodium 135 mmol/L (136-145)
[2017-01-08 16:16] LABS: ALT (SGPT) 115 U/L (0-55); AST (SGOT) 119 U/L (5-34); Albumin 2.8 g/dL (3.5-5.0); Alkaline Phosphatase 115 U/L (40-150); BUN (Urea Nitrogen) 28 mg/dL (9.8-20.1); Bilirubin, Total 0.5 mg/dL (0.2-1.2); Calc. Creatinine Clearance 0 mL/min (70-130); Calcium 8.7 mg/dL (7.8-10.44); Carbon Dioxide 21 mmol/L (22-29); Estimated GFR-MDRD 82; Globulin 4.6 g/dL (2.4-3.5); Glucose 112 mg/dL (70-105); Magnesium 1.7 mg/dL (1.6-2.6); Phosphorus 4.8 mg/dL (2.3-4.7); Protein, Total 7.4 g/dL (6.0-8.3); Triglycerides 176 mg/dL (Less than 150)
[2017-01-08 16:31] LABS: Anion Gap 19 mmol/L (10-20)
== END 2017-01-08 13:16 | disposition home or self-care (01) ==
LOC: NAV LABSP 13:15
PROVIDERS: ATTEND Family Medicine
DX: M34.9 Systemic sclerosis, unspecified (principal); K22.70 Barrett's esophagus without dysplasia; E44.0 Moderate protein-calorie malnutrition; J44.1 Chronic obstructive pulmonary disease with (acute) exacerbation; I10 Essential (primary) hypertension
CPT/HCPCS: 80053; 83735; 84100; 84134; 84478; 85025

== ENCOUNTER 2017-01-22 17:25 | Outpatient (CLI) | payer MEDICARE ==
[2017-01-22 19:04] LABS: ALT (SGPT) 29 U/L (8-55); AST (SGOT) 33 U/L (5-34); Albumin 2.5 g/dL (3.5-5.0); Alkaline Phosphatase 79 U/L (40-150); Anion Gap 19 mmol/L (10-20); BUN (Urea Nitrogen) 26 mg/dL (9.8-20.1); Bilirubin, Total 0.7 mg/dL (0.2-1.2); Calc. Creatinine Clearance 0 mL/min (70-130); Carbon Dioxide 31 mmol/L (22-29); Chloride 87 mmol/L (98-107); Estimated GFR-MDRD 72; Globulin 4.3 g/dL (2.4-3.5); Glucose 148 mg/dL (70-105); Magnesium 1.7 mg/dL (1.6-2.6); Phosphorus 4.2 mg/dL (2.3-4.7); Protein, Total 6.8 g/dL (6.0-8.3); Sodium 134 mmol/L (136-145); Triglycerides 232 mg/dL (Less than 150)
[2017-01-22 19:42] LABS: Potassium 2.6 mmol/L (3.5-5.1)
[2017-01-22 21:38] LABS: #Lymphocytes 1.1 thou/uL (1.20-3.40); #Monocytes 0.5 thou/uL (0.11-0.59); #Neutrophils 5.3 thou/uL (1.40-6.50); %Basophils 0.3 % (0.0-1.0); %Lymphocytes 15.4 % (21.0-51.0); %Monocytes 6.7 % (0.0-10.0); %Neutrophils 77.6 % (42.0-75.0); Anisocytosis MODERATE=16-30 cells (100X) (0-5/hpf); Hypochromia SLIGHT = 6-15 cells (100X) (0-5/hpf); MDiff Complete? YES; Mean Corpuscular HGB CONC 31.5 g/dL (32.0-36.0); Mean Platelet Volume 6.7 fL (7.4-10.4); PLT Morphology Comment Appears Adequate; Platelet Count 184 thou/uL (130-400); Polychromasia SLIGHT = 2-3 cells (100X) (0-2/hpf); RBC Distribution Width 26.6 % (11.5-14.5); White Blood Cell (WBC) Count 6.8 thou/uL (4.8-10.8)
== END 2017-01-22 17:26 | disposition home or self-care (01) ==
LOC: NAV LAB 17:25
PROVIDERS: ATTEND Family Medicine
DX: E44.0 Moderate protein-calorie malnutrition (principal); K22.719 Barrett's esophagus with dysplasia, unspecified; J44.0 Chronic obstructive pulmonary disease with (acute) lower respiratory infection; J15.9 Unspecified bacterial pneumonia; I10 Essential (primary) hypertension
CPT/HCPCS: 80053; 83735; 84100; 84134; 84478; 85025

== ENCOUNTER 2017-01-26 14:55 | Outpatient (CLI) | payer MEDICARE ==
[2017-01-26 16:13] LABS: Anion Gap 18 mmol/L (10-20); BUN (Urea Nitrogen) 30 mg/dL (9.8-20.1); Calc. Creatinine Clearance 0 mL/min (70-130); Carbon Dioxide 25 mmol/L (22-29); Chloride 99 mmol/L (98-107); Estimated GFR-MDRD 83; Glucose 108 mg/dL (70-105); Potassium 3.1 mmol/L (3.5-5.1); Sodium 139 mmol/L (136-145)
== END 2017-01-26 14:56 | disposition home or self-care (01) ==
LOC: NAV LABSP 14:55
PROVIDERS: ATTEND Family Medicine
DX: E44.0 Moderate protein-calorie malnutrition (principal); J15.9 Unspecified bacterial pneumonia
CPT/HCPCS: 80048